=== PATIENT | male | born 1955 | race Caucasian/White ===

== ENCOUNTER → 2017-10-29 | Outpatient (CLI) | payer OTHER ==
[~2017-10-29] VITALS: Ht 182.9 cm; Wt 102.1 kg
[~2017-10-29] MED LIST: ASPIR 8181 MG PO; ATORVASTATIN CA40 MG PO; COQ-10100 MG PO; COZAAR 50 MG TA50 M2 PO; FISH OIL 1,001000 M2 PO; METFORMIN HCL500 MG PO; NORVASC5 MG PO; VITAMIN D3400 UNIT PO
--- NOTE | ~2017-10-29 | EKG ---
[place] [address] [facility] [place] [address] ELECTROCARDIOGRAM REPORT Name: MODESTO MARTIN Room #: REG [facility]#: [id number] Admission: 10/29/17 Attend Phys: Marvin Trotter MD, Discharge: Date of : 55 Report #: [id number] THIS REPORT FOR: //name// [facility] Test Date: 2017-10-29 Test Time: 07:41:12 Pat Name: MODESTO MARTIN Department: Room: Gender: Database Development Project Manager: Arnulfo BLACKMAN : 1955 Requested By: Marvin Trotter Order Number: [id number] MD: Marvin Trotter Measurements Intervals [place] Rate: 58 P: -29 VT: 176 QRS: 5 QRSD: 116 T: -10 QT: 438 QTc: 431 Interpretive Statements Sinus rhythm Nonspecific T wave abnormality No previous ECG available for comparison Electronically Signed On 10-29-2017 10:39:02 CDT by Marvin Trotter [email or web address] <ELECTRONICALLY SIGNED> By: Marvin Trotter MD, [facility] 10/29/17 1039 0741 0741 Marvin Trotter MD, FACC /EPI
--- NOTE | ~2017-10-29 | CATHLAB ---
[facility] [place] [address] INVASIVE PROCEDURE REPORT Name: MODESTO MARTIN [id number] Admission: 10/29/17 Attend Phys: Marvin Trotter, Discharge: Date of : 55 Date of Service: 10/29/17 1703 Report #: [id number] THIS REPORT FOR: //name// APPROVED REPORT Study performed: 10/29/2017 07:55:01 Patient Details Patient Status: Out-Patient Room #: The patient is a 62 year-old male Event Personnel Marvin Trotter Credit Risk Analytics Manager, Jasmyne Herrmann, Barbie Cruz RTR, SEE D eLeónub, Tom Moss locks tender Performed Left Heart Cath w/or w/o Coronaries [id number] [facility] FFR [id number] FFR Indication Positive stress test Procedure Narrative The Right Groin^ was infiltrated with 1% Lidocaine subcutaneous anesthesia. A PINNACLE 6FR Sheath #[id number] sheath was inserted into the RFA^. Coronary angiography was performed using coronary diagnostic catheters. The right coronary system was accessed and visualized with a JR4 catheter. The left coronary system was accessed and visualized with a JL4 catheter. The left ventricle was accessed and visualized with a PIGTAIL catheter. Left ventricular/Aortic Valve gradient assessed via catheter pullback. Left ventriculogram was performed in 30 degree projection. The patient tolerated the procedure well and there were no complications associated with the procedure. Intraoperative Conscious Sedation Sedation start time: 8.32 Case end Time: 9.01 Fentanyl 50 mcg Versed 1.5 mg Fluoro Time: 3.30 minutes Dose: DAP 7587.10 cGycm2 940 mGy Contrast Type and Amount: Omnipaque 140 ml Coronary Angiography [facility] [address] [address] INVASIVE PROCEDURE REPORT Name: MODESTO MARTIN Room #: REG [facility] [id number] Admission: 10/29/17 Attend Phys: Marvin Trotter, Discharge: Date of : 55 Date of Service: 10/29/17 1703 Report #: [id number] The patient's coronary anatomy is right dominant. Diagnostic Cath Left Main Normal left main LAD Sequential 50-60% proximal LAD stenoses. FFR 0.98. Post Adenosine 0.86 Diagonal 1 Large proximal diagonal branch, angiographically normal Circumflex Large circumflex comprised of two large marginal branches OM1 Large first marginal branch, angiographically normal OM2 Moderate second marginal branch, angiographically normal Right Coronary Dominant right coronary with mild 20-30% mid vessel plaquing R PDA Relatively small and angiographically normal Left Ventriculography The left ventricle is mildly dilated in size with normal contractility. The left ventricular ejection fraction is estimated to be 50-55%. Left ventricular wall motion abnormalities are not present. There is 2+ mitral insufficiency. Mitral valve prolapse with probably moderate mitral insufficiency. Correlation with echocardiography recommended. Hemodynamics The aortic pressure is 135/69 mmHg with a mean of 92 mmHg. The left ventricular pressure is 123/12 mmHg with a mean of mmHg. The left ventricular end diastolic pressure is 28 mmHg. PCI Technique Lesion A LAUNCHER 6FR JL4 #[id number] Guide Catheter was used to engage the LCA ostium. A Aeris Pressure Wire 175 cm [id number] Interventional Guidewire was used to cross the lesion. BALLOON DILATION A Balloon catheter Aeris Pressure Wire 175 cm [id number] was inserted and inflated up to 0.84atm for seconds. Conclusion 1. Global and regional systolic function at the lower limits of normal. EF 50%. Mitral valve prolapse with probably moderate mitral insufficiency (Correlate with echocardiography) 2. Normal left main 3. Moderate sequential proximal LAD stenoses (50-60%) not flow limiting by FFR assessment (0.98 to 0.86 with adenosine) [facility] [address] [place] [address] INVASIVE PROCEDURE REPORT Name: VERONICAMODESTO Room #: [facility]#: [id number] Admission: 10/29/17 Attend Phys: Marvin Trotter, Discharge: Date of : 55 Date of Service: 10/29/17 1703 Report #: [id number] 4. Large circumflex, angiographically normal 5. Dominant RCA with mild mid vessel plaquing Recommendations Aggressive Medical Therapy <ELECTRONICALLY SIGNED> By: Marvin Trotter MD, FACC 10/29/171702 02 02 Marvin Trotter MD, FACC /INF
[2017-10-29 07:41] VITALS: BP 100/57
[2017-10-29 07:50] LABS: HEMATOCRIT 45.2 % (42.0-52.0); HEMOGLOBIN 15.4 gm/dL (14.0-18.0); MCH 29.6 pg (26.0-34.0); MCHC 34.1 g/dL (28.0-37.0); MCV 86.8 fL (80.0-100.0); RBC 5.21 mil/uL (4.50-6.00)
[2017-10-29 08:06] LABS: PROTIME 9.8 Seconds (9.3-11.4)
[2017-10-29 08:09] LABS: CALCIUM 9.5 mg/dL (8.5-10.1); CREATININE 0.9 mg/dL (0.7-1.3); POTASSIUM 4.1 mmol/L (3.5-5.1)
== END | disposition home or self-care (01) ==
LOC: CATH 07:02
PROVIDERS: Internal Medicine
DX: I25.10 Atherosclerotic heart disease of native coronary artery without angina pectoris (principal); I51.7 Cardiomegaly; I10 Essential (primary) hypertension; E11.9 Type 2 diabetes mellitus without complications; E78.5 Hyperlipidemia, unspecified; E66.09 Other obesity due to excess calories; Z82.49 Family history of ischemic heart disease and other diseases of the circulatory system; Z79.82 Long term (current) use of aspirin; Z79.899 Other long term (current) drug therapy; Z98.890 Other specified postprocedural states

== ENCOUNTER → 2020-07-30 | Outpatient (CLI) | payer OTHER | LOC: SJCVCIMAG 09:37 | PROVIDERS: ATTEND Internal Medicine | DX: I08.0 Rheumatic disorders of both mitral and aortic valves (principal); R94.31 Abnormal electrocardiogram [ECG] [EKG]; R00.1 Bradycardia, unspecified; I25.119 Atherosclerotic heart disease of native coronary artery with unspecified angina pectoris; E78.5 Hyperlipidemia, unspecified; E11.9 Type 2 diabetes mellitus without complications; I11.9 Hypertensive heart disease without heart failure; Z79.82 Long term (current) use of aspirin; Z79.84 Long term (current) use of oral hypoglycemic drugs; Z79.899 Other long term (current) drug therapy ==

== ENCOUNTER → 2021-01-31 | Outpatient (CLI) | payer OTHER | LOC: SJCVC 13:13 | PROVIDERS: ATTEND Internal Medicine | DX: R94.31 Abnormal electrocardiogram [ECG] [EKG] (principal); I08.3 Combined rheumatic disorders of mitral, aortic and tricuspid valves; I25.119 Atherosclerotic heart disease of native coronary artery with unspecified angina pectoris; I34.0 Nonrheumatic mitral (valve) insufficiency; I10 Essential (primary) hypertension; E78.5 Hyperlipidemia, unspecified; E11.9 Type 2 diabetes mellitus without complications; Z86.010 Personal history of colon polyps; Z79.899 Other long term (current) drug therapy; Z79.82 Long term (current) use of aspirin ==

== ENCOUNTER → 2021-08-05 | Outpatient (CLI) | payer OTHER, MEDICARE | LOC: SJCVCIMAG 08-02 13:55 | PROVIDERS: ATTEND Internal Medicine | DX: I08.8 Other rheumatic multiple valve diseases (principal); R94.31 Abnormal electrocardiogram [ECG] [EKG]; I25.119 Atherosclerotic heart disease of native coronary artery with unspecified angina pectoris; I10 Essential (primary) hypertension; E78.5 Hyperlipidemia, unspecified; E11.9 Type 2 diabetes mellitus without complications; Z79.82 Long term (current) use of aspirin; Z79.84 Long term (current) use of oral hypoglycemic drugs; Z79.899 Other long term (current) drug therapy ==